=== PATIENT | female | born 1990 ===

== ENCOUNTER 2021-02-11 03:06 | Inpatient (IN) | payer OTHER ==
[2021-02-11 04:15] LABS: Amphetamine Screen,Urine Negative; Cocaine Screen,Urine Negative; Opiate Screen,Urine Negative
[2021-02-11 04:17] LABS: Bilirubin,Urine NEG (Negative); Blood,Urine NEG (Negative); Color,Urine Yellow (Yellow); Mucus,Urine 1+ /HPF; Urobilinogen,Urine < 2.0 mg/dL (<2.0)
[2021-02-11 04:47] LABS: Benzodiazepines Screen,Urine Negative; Cannabinoid Screen,Urine Negative
[2021-02-11 05:00] LABS: Methadone Screen,Urine Negative
[2021-02-11] MEDS ORDERED: OXYTOCIN DRIP 30 UNITS/500 ML BAG IV SCH ×2 (05:00→11:00)
[2021-02-11] MEDS ORDERED: METOCLOPRAMIDE 10 MG/2 ML INJ IV ONE (05:00)
[2021-02-11] MEDS ORDERED: BICITRA ORAL LIQD 30ML PO ONE (05:00)
[2021-02-11] MEDS ORDERED: LACTATED RINGERS 1,000 ML IV SCH ×2 (05:00→09:00)
[2021-02-11] MEDS ORDERED: FAMOTIDINE 20 MG/2 ML INJ IV ONE ×2 (05:00→07:27)
[2021-02-11 06:29] LABS: Basophils % (Auto) 0.3 % (0.0-1.8); Eosinophils # (Auto) 0.1 K/mm3 (0.0-0.4); Eosinophils % (Auto) 0.7 % (0.0-4.3); Hematocrit 36.2 % (30.3-42.9); Hemoglobin 12.5 gm/dl (10.1-14.3); Lymphocytes # (Auto) 2.7 K/mm3 (1.2-5.4); Lymphocytes % (Auto) 25.7 % (13.4-35.0); Mean Corpuscular HGB Conc 35 % (30-34); Mean Corpuscular Volume 86 fl (79-97); Monocytes # (Auto) 0.6 K/mm3 (0.0-0.8); Monocytes % (Auto) 5.4 % (0.0-7.3); Platelet Count 195 K/mm3 (140-440); Red Blood Count 4.19 M/mm3 (3.65-5.03); Red Cell Distribution Width 13.6 % (13.2-15.2)
--- NOTE | 2021-02-11 06:29 | Ultrasound Report ---
ULTRASOUND OBSTETRIC LIMITED INDICATION / CLINICAL INFORMATION: presentation TECHNIQUE: Transabdominal. COMPARISON: None available. FINDINGS: Single live intrauterine in breech presentation. heart rate measures 141 bpm. Signer Name: Ravindra Mccann MD Signed: 02/11/2021 6:25 AM Workstation Name: [id number]
--- NOTE | 2021-02-11 06:45 | Anesthesia Day of Surgery ---
Anesthesia Day of Surgery - Day of Surgery Patient Examined: Yes Patient H&P Reviewed: Yes Patient is NPO: Yes Beta Blockers: No Cardiac Clearance: No Pulmonary Clearance: No Steven's Test: Negative
[2021-02-11] MEDS ORDERED: NALOXONE 0.4 MG/1 ML INJ IV PRN ×2 (06:47→11:00)
[2021-02-11] MEDS ORDERED: HYDROmorphone 1 MG/1 ML INJ IV PRN (06:47)
[2021-02-11] MEDS ORDERED: MORPHINE 4 MG/1 ML INJ IV PRN ×2 (06:47→11:00)
[2021-02-11] MEDS ORDERED: ONDANSETRON 4 MG/2 ML INJ IV PRN ×2 (06:47→11:00)
--- NOTE | 2021-02-11 06:47 | Anesthesia Consultation ---
Anesthesia Consult and Med Hx Date of service: 02/11/21 - Airway Anesthetic Teeth Evaluation: Good ROM Head & Neck: Adequate Mental/Hyoid Distance: Adequate Mallampati Class: Class II Intubation Access Assessment: Probably Good - Pulmonary Exam CTA: Yes - Cardiac Exam Cardiac Exam: RRR - Pre-Operative Health Status ASA Pre-Surgery Classification: ASA3 Proposed Anesthetic Plan: General, Spinal - Pulmonary Hx Smoking: No Hx Asthma: No Hx Respiratory Symptoms: No SOB: No COPD: No Home Oxygen Therapy: No Hx Pneumonia: No Hx Sleep Apnea: No - Cardiovascular System Hx Hypertension: Yes (PIH) Hx Coronary Artery Disease: No Hx Heart Attack/AMI: No Hx Angina: No Hx Percutaneous Transluminal Coronary Angioplasty (PTCA): No Hx Cardia Arrhythmia: No Hx Pacemaker: No Hx Internal Defibrillator: No Hx Valvular Heart Disease: No Hx Heart Murmur: No Hx Peripheral Vascular Disease: No - Central Nervous System Hx Neuromuscular Disorder: No Hx Seizures: No CVA: No Hx Back Pain: Yes Hx Psychiatric Problems: No - Gastrointestinal Hx Ulcer: No Hx Gastroesophageal Reflux Disease: Yes - Endocrine Hx Renal Disease: No Hx End Stage Renal Disease: No Hx Cirrhosis: No Hx Liver Disease: No Hx Insulin Dependent Diabetes: No Hx Non-Insulin Dependent Diabetes: No Hx Thyroid Disease: No Hx Hypothyroidism: No Hx Hyperthyroidism: No - Hematic Hx Anemia: No Hx Sickle Cell Disease: No - Other Systems Hx Alcohol Use: Yes (occasional) Hx Substance Use: No Hx Cancer: No Hx Obesity: Yes
[2021-02-11 06:51] LABS: Hepatitis C Virus Antibody Non-Reactive (NonReactive)
[2021-02-11] MEDS ORDERED: BICITRA ORAL LIQD 30ML ONE (07:27)
[2021-02-11] MEDS ORDERED: METOCLOPRAMIDE 10 MG/2 ML INJ ONE (07:27)
[2021-02-11] MEDS ORDERED: ceFAZolin/Water 2 GM/20 ML 2 GM/20 ML SYRINGE IV ONE (07:27)
[2021-02-11] MEDS ORDERED: TERBUTALINE 1 MG/1 ML INJ ONE (08:22)
--- NOTE | 2021-02-11 08:57 | History and Physical Report ---
History of Present Illness Date of examination: 02/11/21 Chief complaint: contractions, breech History of present illness: 31 yo G1 at 38 weeks 6 days (02/19/2021) complicated by ASCUS Pap, class I obesity, elevated blood pressure in presenting with contractions and new diagnosis of breech presentation at term. Patient found to be 2 cm. Patient reports active movement and denies vaginal bleeding or leakage of fluid. Denies current PIH symptoms. records reviewed O+ antibody negative Hemoglobin and hematocrit 12.9 and 40.0 ASCUS, HPV negative Rubella immune VDRL negative Urine culture negative Hemoglobin B surface antigen negative HIV negative Hemoglobin electrophoresis AA Chlamydia negative Gonorrhea negative Cystic fibrosis negative SMA neg Fragile X negative Genetic screening negative Female GBS negative 24-hour total protein 175 Past History Past Medical History: no pertinent history Past Surgical History: no surgical history [employer] History: abnormal PAP smear (ASCUS HPV neg) Family/Genetic History: none Social history: no significant social history - Obstetrical History Expected Date of Delivery: 02/19/21 Actual Gestation: 38 Week(s) 6 Day(s) : 1 Medications and Allergies Allergies Allergy/AdvReac Type Severity Reaction Status Date / Time No Known Allergies Allergy Unverified 02/11/21 03:47 Active Meds: Active Medications Hydromorphone HCl (Hydromorphone 1 Mg/1 Ml Inj) 0.5 mg IV Q4H PRN PRN Reason: breakthrough pain > 7/10 Lactated Ringer's (Lactated Ringers) 1,000 mls @ 2,250 mls/hr IV PREOP GÓMEZ Stop: 02/12/21 05:27 Last Admin: 02/11/21 05:20 Dose: 2,250 mls/hr Documented by: Oxytocin/Sodium Chloride (Pitocin/Ns 30 Unit/500ml) 30 units in 500 mls @ 0 mls/hr IV TITR GÓMEZ; Protocol Morphine Sulfate (Morphine 4 Mg/1 Ml Inj) 2.5 mg IV Q15M PRN PRN Reason: BREAK (>7) Stop: 02/11/21 12:35 Naloxone HCl (Naloxone 0.4 Mg/1 Ml Inj) 0.2 mg IV Q2MIN PRN PRN Reason: Res Rate </= 8 or 02 SAT < 92% Ondansetron HCl (Ondansetron 4 Mg/2 Ml Inj) 4 mg IV Q8H PRN PRN Reason: Nausea And Vomiting Review of Systems All systems: negative (expect HPI) - Vital Signs Vital signs: Vital Signs Pulse Pulse Ox 101 H 100 02/11/21 03:26 02/11/21 03:26 Temp Pulse Resp BP Pulse Ox 98.3 F 116 H 18 118/62 99 02/11/21 08:00 02/11/21 08:54 02/11/21 03:32 02/11/21 08:45 02/11/21 08:54 - Physical Exam Cardiovascular: Regular rate Lungs: Positive: Clear to auscultation, Normal air movement Abdomen: Positive: normal appearance, soft, normal bowel sounds Uterus: Positive: enlarged - Obstetrical FHR: category 1 Uterine Contraction Monitor Mode: External Cervical Dilatation: 2 Uterine Contraction Pattern: Regular Results Result Diagrams: 02/11/21 05:20 Abnormal lab results 02/11/21 Range/Units 05:20 MCHC 35 H (30-34) % All other labs normal. Assessment and Plan - Patient Problems (1) Breech presentation Current Visit: Yes Status: Acute Qualifiers: Fetus number: single or unspecified fetus Qualified Code(s): O32.1XX0 - Maternal care for breech presentation, not applicable or unspecified Plan to address problem: To OR for primary for malpresentation at term in early labor -- chart reviewed Consented in the chart Questions solicited and answered
[2021-02-11] MEDS ORDERED: ONDANSETRON 4 MG/2 ML INJ ONE ×2 (09:12→09:30)
[2021-02-11] MEDS ORDERED: ceFAZolin/STERILE WATER 2 GM/20 ML SYRINGE IV ONE (09:24)
[2021-02-11] MEDS ORDERED: KETOROLAC 30 MG/1 ML INJ ONE (09:30)
[2021-02-11] MEDS ORDERED: PHENYLEPHRINE/NS 1,000 MCG/10 ML SYRINGE (OR USE) IV ONE (09:33)
[2021-02-11] MEDS ORDERED: WATER FOR IRRIG STERILE 1,500 ML BOTTLE IR ONE (09:45)
[2021-02-11] MEDS ORDERED: SODIUM CHLORIDE 0.9% IRR 1,500 ML BOTTLE IR ONE (09:45)
[2021-02-11] MEDS ORDERED: BUPIVACAINE/PF (0.25%) 2.5 MG/ML 30 ML VIAL INFILTRATI ONE ×2 (09:48)
[2021-02-11] MEDS ORDERED: dexAMETHasone 20 MG/5 ML VIAL ONE (09:48)
[2021-02-11] MEDS ORDERED: ACETAMINOPHEN 325 MG TAB PO PRN (10:00)
[2021-02-11] MEDS ORDERED: BUTORPHANOL 2 MG/1 ML INJ IV PRN ×2 (10:00)
[2021-02-11] MEDS ORDERED: CARBOPROST TROMETHAMINE 250 MCG/1 ML INJ IM ONE (10:03)
--- NOTE | 2021-02-11 10:41 | Procedure Note ---
OB Delivery Note - Delivery Date of Delivery: 02/11/21 Surgeon: NORA PETERSON JR Estimated blood loss: other (412 QBL) - Section Preop diagnosis: breech Postop diagnosis: same section procedure: section, primary low transverse Disposition: PACU Complications: none Narrative: Indication: 31 yo G1 at 38 weeks 6 days ([place] 02/19/2021) complicated by ASCUS Pap, class I obesity, elevated blood pressure in presenting with contractions and new diagnosis of breech presentation at term. Findings: Normal uterus, tubes and ovaries. Clear fluid. No nuchal cord. Delivery of female infant at 0959 Weight 3300g Height 21 in APGARS 8/9 EBL 412 QBL IVF 900cc UOP 30cc Procedure: Patient was taken to the operating room prepped and draped in the usual sterile fashion. Pfannenstiel skin incision was made and carried down to the underlying fascia. Fascia was incised and the incision was distended bilaterally. Rectus fascia was dissected off the rectus muscle superiorly and inferiorly. Peritoneum was identified and entered. Peritoneal incision exte nded superiorly and inferiorly. The bladder was visualized. The bladder blade was placed. Uterine hysterotomy incision was made and extended bilaterally. The baby was delivered in the typical vertex fashion. Baby was bulb suction at delivery. The cord was cut and clamped and handed off to the team. The placenta was delivered spontaneously. The uterus was exteriorized and cleared of all clots and debris. Uterine incision was closed with a 0 Vicryl in a running locked fashion. Good hemostasis was noted. Surgicel powder was applied to the uterine incisional base to provide hemostasis. The urine was noted to be clear. Uterus, tubes, and ovaries were returned to the abdominal cavity. Bilateral gutters were cleared and the abdomen and pelvis were irrigated. Good hemostasis noted. The rectus muscle was reapproximated with 2- 0 Vicryl. Attention was directed towards the rectus fascia which was reapproximated with 0 PDS in a running fashion. The subcutaneous tissue was irrigated and reapproximated with 2-0 Vicryl in a running fashion. Skin was closed with a 4-0 Vicryl in a subcuticular fashion. The procedure was completed and the patient tolerated the procedure well. All instruments and lap counts were correct x2. - Infant A at 1 minute: 8 at 5 minutes: 9 Gender: Female
--- NOTE | 2021-02-11 10:52 | Progress Note ---
Spinal Anesthesia Block - Spinal Anesthesia Block Start Time: :17 Stop Time: :30 Performed by:: ABDULLAHI CONNOR Procedure: Patient IDed, H&P reviewed, all questions and concerns were answered, and consent was signed. Timeout was performed at bedside. Patient in sitting position. Sterile prep and drape was performed. [3] ml of 1% lidocaine skin wheal at L[3]- L [4]. Needle introducer advanced. 25 gauge spinal needle advanced. Clear, free flowing CSF. negative blood, negative paresthesia. Spinal dose given. All needles removed. Patient tolerated procedure.
--- NOTE | 2021-02-11 10:53 | Progress Note ---
Regional Anesthesia Block - Regional Anesthesia Block Start Time: 10:39 Stop Time: 10:43 Performed By:: ABDULLAHI CONNOR Procedure: Patient consented for TAP block for post surgical pain management. Patient identified, monitors placed, and time out performed. TAP identified bilaterally via ultrasound. Skin prepped bilaterally with [chlorhexidine] and [22g stimuplex] needle advanced to the TAP. [Marcaine 0.25% 35ml] injected under ultrasound guidance on the [left] side. [Marcaine 0.25% 35ml] injected under ultrasound guidance on the [right] side. Negative aspiration every 5mL, No change in heart rate or rhythm. Patient tolerated the procedure well. No apparent complications seen.
[2021-02-11] MEDS ORDERED: SIMETHICONE 80 MG CHEW TAB PO PRN (11:00)
[2021-02-11] MEDS ORDERED: PROMETHAZINE 25 MG RECT SUPP PR PRN (11:00)
[2021-02-11] MEDS ORDERED: WITCH HAZEL/ GLYCERIN PAD TP PRN (11:00)
[2021-02-11] MEDS: KETOROLAC 30 MG/1 ML INJ IV SCH ×3 (14:58→23:07)
--- NOTE | 2021-02-11 21:55 | Post Anesthesia Evaluation ---
- Post Anesthesia Evaluation Patient Participated: Yes Airway Patent: Yes Stable Respiratory Function: Yes Nausea/Vomiting: No Temp > 96.8F: Yes Pain Manageable: Yes Adequeate Hydration: Yes Anesthesia Complications: No Block Receding Appropriately: Yes Patient on Ventilator: No
[2021-02-11] MEDS ORDERED: MAGNESIUM HYDROXIDE (MOM) ORAL LIQD UDC PO PRN (22:00)
[2021-02-11] MEDS ORDERED: HYDROCORTISONE 25 MG RECTAL SUPP PR PRN (22:00)
[2021-02-11] MEDS ORDERED: SENNOSIDES 8.6 MG TAB PO PRN (22:00)
[2021-02-12 00:49] LABS: Hematocrit 28.2 % (30.3-42.9); Hemoglobin 9.8 gm/dl (10.1-14.3)
[2021-02-12] MEDS: KETOROLAC 30 MG/1 ML INJ IV SCH (05:00)
--- NOTE | 2021-02-12 10:53 | Progress Note ---
Assessment and Plan A: S/P Primary LTCS r/t breech Asymptomatic anemia P: Continue routine pp orders Fe prescribed Encourage ambulation D/C home within 24-48 hrs if stable Subjective - Subjective Date of service: 02/12/21 Principal diagnosis: s/p primary LTCS r/t breech; PIH Patient reports: appetite normal, voiding normally, pain well controlled, ambulating normally : in NICU Objective - Vital Signs Latest vital signs: Vital Signs Temp Pulse Resp BP BP Pulse Ox Pulse Ox 02/12/21 08:17 98.9 F 92 H 18 109/73 95 02/12/21 05:31 98.3 F 83 18 123/67 97 02/12/21 05:30 18 02/12/21 00:37 98.3 F 80 18 131/73 96 02/11/21 23:30 18 02/11/21 23:00 18 02/11/21 20:33 98.3 F 77 18 112/70 99 02/11/21 20:00 98 02/11/21 16:17 98.1 F 71 20 104/56 95 02/11/21 14:58 18 02/11/21 13:30 97.6 F 75 18 101/55 97 97 02/11/21 11:45 69 12 112/76 99 02/11/21 11:40 71 14 114/69 99 02/11/21 11:35 65 13 121/71 99 02/11/21 11:30 65 13 122/73 99 02/11/21 11:25 76 11 L 123/66 99 02/11/21 11:20 70 13 112/66 98 02/11/21 11:10 69 13 109/66 99 02/11/21 11:05 70 14 117/71 100 02/11/21 11:00 98 F 73 13 107/62 98 Intake and Output 02/11/21 02/12/21 02/12/21 22:59 06:59 14:59 Intake Total 360 360 120 Output Total 350 400 600 Balance 10 480 Intake: Oral 360 360 120 Output: Urine 350 400 600 Indwelling Catheter 350 Void 400 600 Other: Total, Intake Amount 240 120 120 Total, Output Amount 100 400 600 # Voids Void 2 - Exam Breasts: Present: normal Abdomen: Present: normal appearance, soft, normal bowel sounds Vulva: both: normal Uterus: Present: normal, firm, fundal height below umbilicus Extremities: Present: normal Incision: Present: normal, dry, intact, dressed - Labs Labs: Abnormal lab results 02/12/21 Range/Units 00:23 Hgb 9.8 L (10.1-14.3) gm/dl Hct 28.2 L D (30.3-42.9) %
[2021-02-12] MEDS: IBUPROFEN 800 MG TAB PO PRN ×2 (13:14→23:51)
[2021-02-12] MEDS: FERROUS SULFATE 325 MG TAB PO SCH ×2 (13:49→21:33)
[2021-02-12] MEDS: oxyCODONE /ACETAMINOPHEN 5-325MG TAB PO PRN (18:24)
[2021-02-12] MEDS: LANOLIN/ZINC/DIMETHICONE (LANSINOH) 7 GM TP PRN (18:24)
[2021-02-13] MEDS: oxyCODONE /ACETAMINOPHEN 5-325MG TAB PO PRN (05:51)
[2021-02-13] MEDS: IBUPROFEN 800 MG TAB PO PRN (10:58)
[2021-02-13] MEDS: FERROUS SULFATE 325 MG TAB PO SCH ×2 (10:59→22:11)
[2021-02-13] MEDS: LANOLIN/ZINC/DIMETHICONE (LANSINOH) 7 GM TP PRN (10:59)
--- NOTE | 2021-02-13 14:10 | Progress Note ---
Assessment and Plan A: day 2 S/P primary LTCS. Anemia. P: Supplement with iron. Encouraged ambulation. Continue routine /postop care. Anticipate discharge tomorrow morning if patient continues to do well. Subjective - Subjective Date of service: 02/13/21 Principal diagnosis: day 2 S/P primary LTCS Patient reports: appetite normal, voiding normally, pain well controlled, flatus, ambulating normally, no dizzy ambulation, no bowel movement, no nauseated [place]: doing well Objective - Vital Signs Latest vital signs: Vital Signs Temp Pulse Resp BP Pulse Ox Pulse Ox 02/13/21 08:48 97.8 F 74 16 99/43 98 02/13/21 08:00 98 02/13/21 05:51 20 02/13/21 00:14 98.7 F 91 H 18 113/63 98 02/12/21 23:51 20 02/12/21 20:05 98 02/12/21 16:34 97.6 F 97 H 18 109/64 97 Intake and Output 02/12/21 02/13/21 02/13/21 23:59 07:59 15:59 Intake Total 480 240 Output Total 700 Balance -220 240 Intake: Oral 480 240 Output: Urine 700 Void 700 Other: Total, Intake Amount 120 120 Total, Output Amount 700 # Voids Indwelling Catheter 1 Void 1 1 - Exam Cardiovascular: Present: Regular rate Lungs: Present: Clear to auscultation Abdomen: Present: normal appearance, soft, normal bowel sounds. Absent: distention, tenderness, guarding, rigidity Uterus: Present: normal, firm, fundal height below umbilicus. Absent: bogginess, tenderness Extremities: Present: normal. Absent: tenderness, edema Incision: Present: normal, dry, intact
[2021-02-14] MEDS: IBUPROFEN 800 MG TAB PO PRN (00:02)
[2021-02-14] MEDS: oxyCODONE /ACETAMINOPHEN 5-325MG TAB PO PRN (05:39)
--- NOTE | 2021-02-14 07:29 | Progress Note ---
Assessment and Plan A: day 3 S/P primary LTCS. Anemia. P: Discharge patient home today. Discussed with patient /postop discharge instructions and warning signs. Care of incision and activity restrictions discussed with patient. Advised patient to continue taking her vitamins and iron supplements at home. Advised patient to avoid intercourse, lifting, housework, driving, stair climbing. Advised patient to follow up at [facility] in 1 week. Patient voiced understanding of all instructions. Subjective - Subjective Date of service: 02/14/21 Principal diagnosis: day 3 S/P primary LTCS Interval history: Patient requests discharge home today. Patient reports: appetite normal, voiding normally, pain well controlled, flatus, ambulating normally, no dizzy ambulation, no nauseated [place]: doing well Objective - Vital Signs Latest vital signs: Vital Signs Temp Pulse Resp BP BP Pulse Ox Pulse Ox 02/14/21 05:39 20 02/14/21 00:02 20 02/14/21 00:00 98.6 F 77 16 114/78 02/13/21 19:45 99 02/13/21 19:00 98.4 F 75 16 109/49 98 02/13/21 08:48 97.8 F 74 16 99/43 98 02/13/21 08:00 98 - Exam Cardiovascular: Present: Regular rate Lungs: Present: Clear to auscultation Abdomen: Present: normal appearance, soft, normal bowel sounds. Absent: distention, tenderness, guarding, rigidity Uterus: Present: normal, firm, fundal height below umbilicus. Absent: bogginess, tenderness Extremities: Present: normal. Absent: tenderness Incision: Present: normal, dry, intact
--- NOTE | 2021-02-14 07:33 | Discharge Summary ---
Providers - Providers Date of Admission: 02/11/21 08:59 Date of discharge: 02/14/21 Attending physician: ALEXIS MONCADA MD 02/12/21 08:00 Consult to Leave Coordinator [CONS] Routine Reason For Exam: Assistance with , First time mom Primary care physician: ALEXIS MONCADA MD Hospitalization Reason for admission: section Delivery: Procedure: primary low transverse Incision: normal, dry, intact Other procedures: none complications: none Discharge diagnosis: IUP at term delivered [place] baby: female Pertinent studies: Labs Hospital course: Stable hospital course Condition at discharge: Good Disposition: 01 HOME / SELF CARE / HOMELESS - Discharge Diagnoses (1) Term delivered Status: Acute (2) Anemia Status: Acute Plan - Discharge Medications Prescriptions: Ibuprofen [Motrin 800 MG tab] 800 mg PO Q6H PRN #30 tablet PRN Reason: Pain, Mild (1-3) oxyCODONE /ACETAMINOPHEN [Percocet 5/325 mg] 1 tab PO Q6H PRN #30 tablet PRN Reason: Pain, Moderate (4-6) - Provider Discharge Summary Activity: routine, no sex for 6 weeks, no heavy lifting 4 weeks, no strenuous exercise Diet: routine Instructions: routine Additional instructions: Continue taking your vitamin and iron supplements at home. Follow up at [facility] in 1 week. Call your doctor immediately for: * Fever > 100.5 * Heavy vaginal bleeding ( >1 pad per hour) * Severe persistent headache * Shortness of breath * Reddened, hot, painful area to leg or breast * Drainage or odor from incision. * Keep incision clean and dry at all times and follow doctor's instructions regarding bathing/showering - Follow up plan Follow up: NORA PETERSON JR, MD [Staff Physician] - 7 Days
[2021-02-14] MEDS: FERROUS SULFATE 325 MG TAB PO SCH (11:03)
[2021-02-14 13:06] VITALS: BP 131/85
== END 2021-02-14 14:05 | disposition home or self-care (01) | DRG 788 ==
LOC: TRG 03:06 → APU 03:14 → LD 06:21 → APU 06:32 → TRG 08:56 → APU 08:59 → OB 12:24
PROVIDERS: ADMIT Obstetrics & Gynecology
PROC: 10D00Z1 Extraction of Products of Conception, Low, Open Approach (ICD-10-PCS; principal; 2021-02-11)
PROC: 3E0T3BZ Introduction of Anesthetic Agent into Peripheral Nerves and Plexi, Percutaneous Approach (ICD-10-PCS; 2021-02-11)
DX: O32.1XX0 Maternal care for breech presentation, not applicable or unspecified (principal); Z3A.38 38 weeks gestation of pregnancy; Z37.0 Single live birth; Z20.822 Contact with and (suspected) exposure to COVID-19; O99.214 Obesity complicating childbirth; O99.62 Diseases of the digestive system complicating childbirth; K21.9 Gastro-esophageal reflux disease without esophagitis; O13.4 Gestational [pregnancy-induced] hypertension without significant proteinuria, complicating childbirth; O90.81 Anemia of the puerperium; D64.9 Anemia, unspecified
CPT/HCPCS: 36415; 59025; 76815; 80307; 81001; 85014; 85018; 85025; 86592; 86706; 86762; 86803; 86850; 86900; 86901; 87806; 96360; 96361; 96374; 99211; G0378; A6250; G0463; J0690; J1100; J1885; J2270; J2370; J2405; J2765; J3105; J3490; J7120; U0003

== ENCOUNTER 2021-07-05 03:17 | Emergency (ER) | payer OTHER ==
[2021-07-05] MEDS ORDERED: SODIUM CHLORIDE 0.9% 1000 ML 1,000 ML IV ONE (03:40)
[2021-07-05] MEDS ORDERED: ONDANSETRON 4 MG/2 ML INJ IV ONE (03:40)
[2021-07-05] MEDS ORDERED: MORPHINE 4 MG/1 ML INJ IV ONE (03:40)
[2021-07-05 03:57] LABS: Basophils % (Auto) 0.2 % (0.0-1.8); Eosinophils # (Auto) 0.4 K/mm3 (0.0-0.4); Hemoglobin 13.3 gm/dl (10.1-14.3); Lymphocytes # (Auto) 2.3 K/mm3 (1.2-5.4); Lymphocytes % (Auto) 16.2 % (13.4-35.0); Mean Corpuscular HGB Conc 33 % (30-34); Mean Corpuscular Volume 82 fl (79-97); Monocytes # (Auto) 0.7 K/mm3 (0.0-0.8); Monocytes % (Auto) 5.3 % (0.0-7.3); Platelet Count 301 K/mm3 (140-440); Red Blood Count 4.98 M/mm3 (3.65-5.03); Red Cell Distribution Width 14.3 % (13.2-15.2)
--- NOTE | 2021-07-05 04:11 | Emergency Department Report ---
ED Abdominal Pain HPI - General Chief Complaint: Abdominal Pain Stated Complaint: ABD PAIN/GALLBLADER Time Seen by Provider: 07/05/21 03:38 Source: patient Mode of arrival: Ambulatory Limitations: No Limitations - History of Present Illness Initial Comments: Patient presents with worsening abdominal pain. She has known biliary disease. She has gallstones and is scheduled for surgery on Tuesday with Dr. Aguilar. Patient states that over the last day her pain is worsened. She has been taking tramadol it is not helping. Pain is in the epigastric and right upper quadrant areas. The pain radiates diffusely throughout the rest of her abdomen into the right shoulder and to her back. There is no trauma. She has no fevers or chills. She has had nausea with vomiting. There was no hematemesis or coffee- ground emesis. Patient states that this is the same pain she has been having that has been related to her biliary disease. - Related Data Previous Rx's Medication Instructions Recorded Last Taken Type Ibuprofen [Motrin 800 MG tab] 800 mg PO Q6H PRN #30 tablet 02/11/21 Unknown Rx oxyCODONE /ACETAMINOPHEN [Percocet 1 tab PO Q6H PRN #15 tablet 07/05/21 Unknown Rx 5/325 mg] Allergies Allergy/AdvReac Type Severity Reaction Status Date / Time No Known Allergies Allergy Unverified 02/11/21 03:47 ED Review of Systems ROS: Stated complaint: ABD PAIN/GALLBLADER Other details as noted in HPI Comment: All other systems reviewed and negative Constitutional: denies: fever Eyes: denies: vision change ENT: denies: throat pain Respiratory: denies: cough Cardiovascular: denies: chest pain Endocrine: denies: unexplained weight loss Gastrointestinal: as per HPI Genitourinary: denies: dysuria Musculoskeletal: denies: arthralgia Skin: denies: rash Neurological: denies: headache Hematological/Lymphatic: denies: easy bruising ED Past Medical Hx - Past Medical History Hx Hypertension: Yes (PIH) Hx Heart Attack/AMI: No Hx Liver Disease: No Hx Renal Disease: No Hx Sickle Cell Disease: No Hx Seizures: No Hx Asthma: No Hx COPD: No Additional medical history: Biliary colic - Surgical History Hx Pacemaker: No Hx Internal Defibrillator: No - Family History Family history: hypertension - Social History Smoking Status: Never Smoker Substance Use Type: None - Medications Home Medications: Home Medications Medication Instructions Recorded Confirmed Last Taken Type Ibuprofen [Motrin 800 MG tab] 800 mg PO Q6H PRN #30 tablet 02/11/21 Unknown Rx oxyCODONE /ACETAMINOPHEN [Percocet 1 tab PO Q6H PRN #15 tablet 07/05/21 Unknown Rx 5/325 mg] ED Physical Exam - General Limitations: No Limitations, Other (Pulse ox noted and normal) General appearance: alert, in distress (Moderate discomfort), obese - Head Head exam: Present: atraumatic, normocephalic - Eye Eye exam: Present: normal appearance, EOMI. Absent: scleral icterus - ENT ENT exam: Present: normal orophraynx, normal external ear exam - Neck Neck exam: Present: normal inspection. Absent: meningismus - Respiratory Respiratory exam: Present: normal lung sounds bilaterally. Absent: respiratory distress - Cardiovascular Cardiovascular Exam: Present: regular rate, normal rhythm - GI/Abdominal GI/Abdominal exam: Present: soft, tenderness (Right upper quadrant and epigas tric area). Absent: distended, guarding, rebound - Extremities Exam Extremities exam: Present: normal capillary refill - Back Exam Back exam: Absent: CVA tenderness (R), CVA tenderness (L) - Neurological Exam Neurological exam: Present: alert, oriented X3, CN II-XII intact. Absent: motor sensory deficit - Psychiatric Psychiatric exam: Present: normal affect, normal mood - Skin Skin exam: Present: warm, dry ED Course Vital Signs 07/05/21 07/05/21 07/05/21 03:31 04:21 04:23 Temperature 97.5 F L Pulse Rate 88 86 Respiratory 20 16 Rate Blood Pressure 141/84 Blood Pressure 126/76 [Left] O2 Sat by Pulse 99 98 98 Oximetry - Reevaluation(s) Reevaluation #1: 07/05/21 04:10 IV and labs have been ordered. Old records are noted. Reevaluation #2: 07/05/21 04:37 Labs have been noted. Pain has improved. I do believe that patient could be discharged home safely. ED Medical Decision Making - Lab Data Result diagrams: 07/05/21 03:44 07/05/21 03:44 - Medical Decision Making Patient presents with right upper quadrant pain in the setting of known biliary colic. She has worsening pain with her current presentation. There was no trauma that would have suggested injury. She was not jaundiced. I do not believe this represents acute hepatitis. She does have leukocytosis without evidence of bandemia. I do not believe this represents acute cholecystitis. She does not have intractable pain. After analgesia, there is no tenderness in the right upper quadrant or epigastric area. She certainly does not have hepatitis or pancreatitis that would necessitate admission. She has an appointment scheduled on Tuesday and she is comfortable with the current plan. We will change her analgesics and have her follow-up. Critical Care Time: No Critical care attestation.: If time is entered above; I have spent that time in minutes in the direct care of this critically ill patient, excluding procedure time. ED Disposition Clinical Impression: Biliary colic Disposition: 01 HOME / SELF CARE / HOMELESS Is pt being admited?: No Condition: Stable Instructions: Abdominal Pain (ED), Biliary Colic, Adult Additional Instructions: Continue with a bland diet. Drink plenty of water. Return for problems. Follow-up with your regular doctor for recheck. Keep the appointment for surgery. Prescriptions: oxyCODONE /ACETAMINOPHEN [Percocet 5/325 mg] 1 tab PO Q6H PRN #15 tablet PRN Reason: Pain, Moderate (4-6) Referrals: KAI GRAF DO [Staff Physician] - 3-5 Days
[2021-07-05 04:20] LABS: Alanine Aminotransferase 36 units/L (7-56); Albumin 4.8 g/dL (3.9-5); BUN/Creatinine Ratio 21; Blood Urea Nitrogen 17 mg/dL (7-17); Calcium 9.3 mg/dL (8.4-10.2); Hemolysis Index 4
[2021-07-05 05:11] VITALS: BP 130/80
== END 2021-07-05 05:09 | disposition home or self-care (01) ==
LOC: ED 03:17
DX: K80.50 Calculus of bile duct without cholangitis or cholecystitis without obstruction (principal); I10 Essential (primary) hypertension
CPT/HCPCS: 36415; 80053; 83690; 84703; 85025; 96361; 96374; 96375; 99283; J2270; J2405; J7030; Q0162